=== PATIENT | male | born 1965 | race African-American/Black ===

== ENCOUNTER 2019-06-19 17:48 | Emergency (ER) | payer MEDICAID ==
[~2019-06-19] VITALS: Ht 175.3 cm; Wt 75.0 kg
[2019-06-19 19:45] VITALS: BP 140/80
--- NOTE | 2019-06-19 20:47 | RAD ---
INDICATION: Cough COMPARISON: June 19, 2019 FINDINGS: 2 view of chest obtained. No focal airspace consolidation or pulmonary edema. Cardiac silhouette is unremarkable. Degenerative changes of the spine. IMPRESSION: * No focal airspace consolidation or edema. Electronically signed by: Tk Raygoza MD (06/19/2019 8:44 PM) [id number]
[2019-06-19] MEDS ORDERED: PRED50TA PO (21:27)
[2019-06-19] MEDS ORDERED: ALBU2.5V8 IH (21:27)
[2019-06-19] MEDS ORDERED: CETI10TA24 PO (21:27)
[2019-06-19] MEDS ORDERED: KETO5DRO4 EACHEYE (21:27)
[2019-06-19] MEDS ORDERED: BENZ100C PO (21:27)
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
== END 2019-06-19 21:41 | disposition home or self-care (01) ==
LOC: ER 17:48
DX: J40 Bronchitis, not specified as acute or chronic (principal); H10.13 Acute atopic conjunctivitis, bilateral; Z59.0 Homelessness; J44.9 Chronic obstructive pulmonary disease, unspecified; F20.9 Schizophrenia, unspecified; F17.200 Nicotine dependence, unspecified, uncomplicated
CPT/HCPCS: 71046; 99283

== ENCOUNTER 2019-07-03 19:55 | Emergency (ER) | payer MEDICAID ==
[~2019-07-03] VITALS: Ht 175.3 cm; Wt 75.0 kg
[~2019-07-03 19:55] MED LIST: ALBU2.5V8 IH; BENZ100C PO; CETI10TA24 PO; KETO5DRO4 EACHEYE; PRED50TA PO
[2019-07-03 20:30] VITALS: BP 126/73
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
--- NOTE | 2019-07-03 21:54 | RAD ---
Two-view right humerus dated 07/03/2019. No comparison available. CLINICAL INDICATION: Pain after injury. FINDINGS: 2 views of the right humerus show normal bony alignment. No displaced fracture. No periostitis or bone destruction. Mild hypertrophic change of the AC joint. IMPRESSION: No acute findings. Electronically signed by: Blaise Stone MD (07/03/2019 9:51 PM) [id number]
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
[2019-07-03] MEDS ORDERED: NAPR-695 PO (22:03)
[2019-07-03] MEDS ORDERED: CYCL10TA2 PO (22:03)
== END 2019-07-03 22:15 | disposition home or self-care (01) ==
LOC: ER 19:55
DX: S13.9XXA Sprain of joints and ligaments of unspecified parts of neck, initial encounter (principal); M25.511 Pain in right shoulder; M79.10 Myalgia, unspecified site; J44.9 Chronic obstructive pulmonary disease, unspecified; F20.9 Schizophrenia, unspecified; F31.9 Bipolar disorder, unspecified; F17.200 Nicotine dependence, unspecified, uncomplicated; F10.20 Alcohol dependence, uncomplicated; Y90.9 Presence of alcohol in blood, level not specified; V49.88XA Car occupant (driver) (passenger) injured in other specified transport accidents, initial encounter; Y92.488 Other paved roadways as the place of occurrence of the external cause; Y93.89 Activity, other specified; Y99.8 Other external cause status
CPT/HCPCS: 72040; 73060; 99284

== ENCOUNTER 2020-12-20 19:08 | Emergency (ER) | payer MEDICAID ==
[~2020-12-20] VITALS: Ht 175.3 cm; Wt 75.0 kg
[~2020-12-20 19:08] MED LIST changes: -CETI10TA24 PO; +CETI10TA74 PO; +CYCL10TA2 PO; +NAPR-695 PO
[2020-12-20 20:32] VITALS: BP 152/69
[2020-12-20] MEDS ORDERED: LIDOCAINE 1% Multi-Dose 20 ML VIAL. INJ ONE (21:00)
[2020-12-20] MEDS ORDERED: SULF1TAB24 PO (21:41)
--- NOTE | 2020-12-20 21:41 | PHYS DOC ---
Past Medical History Past Medical History: Anxiety, COPD, Depression, Schizophrenia Additional Past Medical Histor: PROSTATE PROBLEMS (ADELINA GARDINER MOLD CHIPPER) Past Surgical History: Other Additional Past Surgical Histo: HAND SURGERY (ADELINA GARDINER MOLD CHIPPER) Smoking Status: Current Every Day Smoker Alcohol Use: None Drug Use: None (ADELINA GARDINER MOLD CHIPPER) General Adult EDM: Chief Complaint: INSECT BITE HPI: HPI: Patient is a 55 year old male who presents with 1 week of right forearm abscess that is a quarter sized and lifted up. It is slightly indurated and fluctuant. Afebrile and patient denies any current fever but he states is painful rates a 8 out of 10. Looks as though he has been picking at it and trying to drain it himself. Slight redness around the abscess area. (ADELINA GARDINER MOLD CHIPPER) Review of Systems: Review of Systems: Constitutional: Denies fever or chills. [] Eyes: Denies change in visual acuity. [] HENT: Denies nasal congestion or sore throat. [] Respiratory: Denies cough or shortness of breath. [] Cardiovascular: Denies chest pain or edema. [] GI: Denies abdominal pain, nausea, vomiting, bloody stools or diarrhea. [] : Denies dysuria. [] Musculoskeletal: Denies back pain or joint pain.+ Right arm pain [] Integument: Denies rash. + Right forearm abscess [] Neurologic: Denies headache, focal weakness or sensory changes. [] Endocrine: Denies polyuria or polydipsia. [] Lymphatic: Denies swollen glands. [] Psychiatric: Denies depression or anxiety. [] (ADELINA GARDINER MOLD CHIPPER) Heart Score: C/O Chest Pain: No Risk Factors: Risk Factors: DM, Current or recent (<one month) smoker, HTN, HLP, family history of CAD, obesity. Risk Scores: Score 0 - 3: 2.5% MACE over next 6 weeks - Discharge Home Score 4 - 6: 20.3% MACE over next 6 weeks - Admit for Clinical Observation Score 7 - 10: 72.7% MACE over next 6 weeks - Early Invasive Strategies (ADELINA GARDINER MOLD CHIPPER) Current Medications: Current Medications Medications (Trade) Dose Ordered Sig/Kofi Start Time Stop Time Status Last Admin Dose Admin Lidocaine HCl (Lidocaine 1% 20ml Vial) 20 ml 1X ONCE 12/20/20 21:00 12/20/20 21:01 DC 12/20/20 21:37 20 ML (ADELINA GARDINER APRN) Allergies: Allergies: Allergies Coded Allergies Type Severity Reaction Last Updated Verified No Known Drug Allergies 05/22/19 No (ADELINA GARDINER APRN) Physical Exam: PE: Constitutional: Well developed, well nourished, no acute distress, non-toxic appearance. [] HENT: Normocephalic, atraumatic, bilateral external ears normal, oropharynx moist, no oral exudates, nose normal. [] Eyes: PERRLA, EOMI, conjunctiva normal, no discharge. [] Neck: Normal range of motion, no tenderness, supple, no stridor. [] Cardiovascular:Heart rate regular rhythm, no murmur [] Lungs & Thorax: Bilateral breath sounds clear to auscultation [] Abdomen: Bowel sounds normal, soft, no tenderness, no masses, no pulsatile masses. [] Skin: Warm, dry, right forearm erythema, no rash. Right forearm abscess [] Back: No tenderness, no CVA tenderness. [] Extremities: No tenderness, no cyanosis, no clubbing, ROM intact, no edema. [] Neurologic: Alert and oriented X 3, normal motor function, normal sensory function, no focal deficits noted. [] Psychologic: Affect normal, judgement normal, mood normal. [] (ADELINA GARDINER APRN) Current Patient Data: Vital Signs: Vital Signs Date Time Temp Pulse Resp B/P (MAP) Pulse Ox O2 Delivery O2 Flow Rate FiO2 12/20/20 20:32 97.8 96 20 152/69 (96) 95 Room Air 97.8 (ADELINA GARDINER APRN) EKG: EKG: [] (ADELINA GARDINER APRN) Radiology/Procedures: Radiology/Procedures: [] (ADELINA GARDINER APRN) Course & Med Decision Making: Course & Med Decision Making Pertinent Labs and Imaging studies reviewed. (See chart for details) See HPI. Alert and oriented x4. Speaks in full clear sentences. Ambulatory with a steady gait. Abscesses quarter size. Slightly fluctuant. There is early redness to around the abscess area. Afebrile. Nontoxic-appearing. Radial pulse strong are present. Cap refill less than 2 seconds. I&D Location: Right forearm Quarter sized abscess raised Anesthesia: 1% lidocaine Scalpel size: #11 Skin: Slight redness around the area Drainage: None Packing: None Patient tolerated the procedure well with no complications. The area was prepped and draped in usual sterile fashion. Area was cleaned with chloehexidine prior to procedure. Return for signs and symptoms of infection education given. Patient to return in 48 hours for wound recheck. [] (ADELINA GARDINER APRN) Course & Med Decision Making Care and Treatment plan independently provided by HOSPITAL NURSE LIAISON. I was available for consult. Patients chart reviewed. (ALIDA VEGA DO) Santa Disclaimer: Santa Disclaimer: This electronic medical record was generated, in whole or in part, using a voice recognition dictation system. (ADELINA GARDINER APRN) Departure Departure Impression: Primary Impression: Abscess Disposition: 01 HOME / SELF CARE / HOMELESS Condition: STABLE Referrals: UNKNOWN PCP NAME (PCP) Patient Instructions: Abscess, Abscess, Care After Additional Instructions: Follow-up with your primary care provider he can return to the emergency room in 48 hours for us to do a wound recheck. Take antibiotic as prescribed and with food. Use ibuprofen or Tylenol for your pain. Use a warm compress. Keep clean and covered. Scripts Sulfamethoxazole/Trimethoprim (BACTRIM DS TABLET) 1 Each Tablet 1 TAB PO BID for 10 Days, #20 TAB 0 Refills Prov: ADELINA GARDINER APRN 12/20/20 ADELINA GARDINER APRN Dec 20, 2020 21:41 ALIDA VEGA DO Dec 23, 2020 18:23
== END 2020-12-20 22:55 | disposition home or self-care (01) ==
LOC: ER 19:08
DX: L02.413 Cutaneous abscess of right upper limb (principal); J44.9 Chronic obstructive pulmonary disease, unspecified; F20.9 Schizophrenia, unspecified; F17.200 Nicotine dependence, unspecified, uncomplicated; F41.9 Anxiety disorder, unspecified
CPT/HCPCS: 10060; 99283; J3490